=== PATIENT | male | born 1960 | race Caucasian/White ===

== ENCOUNTER 2018-01-31 10:32 | Emergency (ER) | payer OTHER ==
[~2018-01-31] VITALS: Ht 182.9 cm; Wt 112.0 kg
[2018-01-31 10:40] VITALS: BP 213/104; PULSE 82; RESP 16; TEMP 98.8; O2SAT 97
[2018-01-31] MEDS ORDERED: ASPI-183 PO (10:58)
[2018-01-31] MEDS ORDERED: SERT-132 PO (10:58)
[2018-01-31] MEDS ORDERED: LISI-515 PO (10:58)
--- NOTE | 2018-01-31 11:13 | PD ---
HPI Chief Complaint: Musculoskeletal Complaint Time Seen by Provider: 11:13 Travel History International Travel<30 days: No Contact w/Intl Traveler<30days: No Traveled to known affect area: No History of Present Illness HPI Patient is a 57-year-old male presents emergency department for evaluation of right calf cramping and pain as well as swelling. Patient states he first noticed cramping 2 days ago and gradually worsened. 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 He denies any long travel denies any history of blood clots or trauma. Patient became alarmed this morning when he found it to be swollen from his calf down and that his foot was a little bit more pale on the right than on the left. Denies any chest pain denies any shortness of breath. Symptoms moderate , right lower extremity, context and associated signs symptoms as above. PFSH Past Medical History Hypertension: Yes Influenza Vaccination: No Past Surgical History Surgical History: No Previous Surgery Social History Alcohol Use: Yes (OCCAS) Tobacco Use: No Substance Use: No Allergies-Medications (Allergen,Severity, Reaction): Coded Allergies: prednisone (Verified Allergy, Unknown, 01/31/18) sulfamethoxazole (Verified Allergy, Unknown, 01/31/18) trimethoprim (Verified Allergy, Unknown, 01/31/18) Reported Meds & Prescriptions Reported Meds & Active Scripts Active Flexeril (Cyclobenzaprine HCl) 10 Mg Tab 10 Mg PO TID Reported Aspirin 325 Mg Tab 325 Mg PO ONCE Sertraline (Sertraline HCl) 50 Mg Tab 50 Mg PO DAILY Lisinopril 20 Mg Tab 20 Mg PO DAILY Review of Systems Except as stated in HPI: all other systems reviewed are Neg Physical Exam Narrative GENERAL: WD/WN in nad. SKIN: Focused skin assessment warm/dry. HEAD: Atraumatic. Normocephalic. EYES: Pupils equal and round. No scleral icterus. No injection or drainage. ENT: No nasal bleeding or discharge. Mucous membranes pink and moist. NECK: Trachea midline. No JVD. CARDIOVASCULAR: Regular rate and rhythm. No murmur appreciated. RESPIRATORY: No accessory muscle use. Clear to auscultation. Breath sounds equal bilaterally. GASTROINTESTINAL: Abdomen soft, non-tender, nondistended. Hepatic and splenic margins not palpable. MUSCULOSKELETAL: No obvious deformities. No clubbing. No cyanosis. There is some swelling of the right lower extremity, compartments are soft however. There are 2+ bilateral equal pulses and DPs and PTs. Pulses motor and sensory intact distally in all 4 extremities. There is no swelling proximal to the knee. No tenderness on the bones. NEUROLOGICAL: Awake and alert. No obvious cranial nerve deficits. Motor grossly within normal limits. Normal speech. PSYCHIATRIC: Appropriate mood and affect; insight and judgment normal. Data Data Last Documented VS Vital Signs Date Time Temp Pulse Resp B/P (MAP) Pulse Ox O2 Delivery O2 Flow Rate FiO2 01/31/18 13:56 01/31/18 13:19 70 18 96 Room Air 01/31/18 10:40 98.8 Orders Orders Us Leg Venous Doppler (01/31/18 11:17) Complete Blood Count With Diff (01/31/18 11:17) Comprehensive Metabolic Panel (01/31/18 11:17) Prothrombin Time / Inr (Pt) (01/31/18 11:17) Act Partial Throm Time (Ptt) (01/31/18 11:17) Iv Access Insert/Monitor (01/31/18 11:17) Ecg Monitoring (01/31/18 11:17) Oximetry (01/31/18 11:17) Sodium Chloride 0.9% Flush (Ns Flush) (01/31/18 11:30) Ed Discharge Order (01/31/18 13:44) Labs Laboratory Tests Test 01/31/18 11:45 White Blood Count 7.1 TH/MM3 Red Blood Count 5.07 MIL/MM3 Hemoglobin 14.5 GM/DL Hematocrit 44.1 % Mean Corpuscular Volume 87.1 FL Mean Corpuscular Hemoglobin 28.7 PG Mean Corpuscular Hemoglobin Concent 32.9 % Red Cell Distribution Width 12.1 % Platelet Count 228 TH/MM3 Mean Platelet Volume 7.1 FL Neutrophils (%) (Auto) 68.8 % Lymphocytes (%) (Auto) 20.0 % Monocytes (%) (Auto) 8.7 % Eosinophils (%) (Auto) 1.8 % Basophils (%) (Auto) 0.7 % Neutrophils # (Auto) 5.0 TH/MM3 Lymphocytes # (Auto) 1.4 TH/MM3 Monocytes # (Auto) 0.6 TH/MM3 Eosinophils # (Auto) 0.1 TH/MM3 Basophils # (Auto) 0.0 TH/MM3 CBC Comment DIFF FINAL Differential Comment Prothrombin Time 10.4 SEC Prothromb Time International Ratio 1.0 RATIO Activated Partial Thromboplast Time 23.6 SEC Blood Urea Nitrogen 15 MG/DL Creatinine 0.70 MG/DL Random Glucose 139 MG/DL Total Protein 7.6 GM/DL Albumin 3.9 GM/DL Calcium Level 9.0 MG/DL Alkaline Phosphatase 68 U/L Aspartate Amino Transf (AST/SGOT) 67 U/L Alanine Aminotransferase (ALT/SGPT) 96 U/L Total Bilirubin 0.5 MG/DL Sodium Level 137 MEQ/L Potassium Level 3.8 MEQ/L Chloride Level 104 MEQ/L Carbon Dioxide Level 25.5 MEQ/L Anion Gap 8 MEQ/L Estimat Glomerular Filtration Rate 115 ML/MIN [facility] Medical Decision Making Medical Screen Exam Complete: Yes Emergency Medical Condition: Yes Differential Diagnosis DVT, leg strain, leg sprain, compartments syndrome was excluded clinically, fracture excluded clinically Narrative Course Patient room to the emergency department, appears fairly comfortable, DVT ultrasound negative, basic labs are reassuring. Discussed with patient symptomatic management return to ED criteria follow-up with a primary care physician and recommended repeat ultrasound of still having swelling in 1 week Diagnosis Primary Impression: Leg swelling Additional Impression: Muscle cramps Additional Instructions: If your still swollen and we can recommend you have a repeat ultrasound with her primary care physician or the emergency department. Med/Other Pt SpecificInfo: Prescription(s) given Scripts Cyclobenzaprine (Flexeril) 10 Mg Tab 10 MG PO TID for Muscle Spasm, #30 TAB 0 Refills Prov: Manjit Hillman MD 01/31/18 Disposition: 01 DISCHARGE HOME Condition: Stable Manjit Hillman MD Jan 31, 2018 11:13
[2018-01-31] MEDS ORDERED: SODIUM CHLORIDE 0.9% FLUSH 10 ML FLUSH IV FLUSH PRN (11:30)
[2018-01-31 11:51] LABS: BASOPHIL % 0.7 % (0.0-2.0); EOSINOPHIL # 0.1 TH/MM3 (0-0.4); EOSINOPHIL % 1.8 % (0.0-4.0); HEMATOCRIT 44.1 % (39.0-51.0); HEMOGLOBIN 14.5 GM/DL (13.0-17.0); LYMPHOCYTE # 1.4 TH/MM3 (1.0-4.8); MEAN CELL VOLUME 87.1 FL (80.0-100.0); MEAN CORPUSCULAR HEMOGLOBIN 28.7 PG (27.0-34.0); MEAN CORPUSCULAR HGB CONC 32.9 % (32.0-36.0); MEAN PLATELET VOLUME 7.1 FL (7.0-11.0); MONO % 8.7 % (0.0-8.0); MONOCYTE # 0.6 TH/MM3 (0-0.9); NEUT % 68.8 % (16.0-70.0); PLATELET COUNT 228 TH/MM3 (150-450); RED BLOOD COUNT 5.07 MIL/MM3 (4.50-5.90); RED CELL DISTRIBUTION WIDTH 12.1 % (11.6-17.2); WHITE BLOOD COUNT 7.1 TH/MM3 (4.0-11.0)
[2018-01-31 11:54] VITALS: RESP 18; O2SAT 98
[2018-01-31 11:56] VITALS: BP 193/89; PULSE 77; RESP 16; O2SAT 97
[2018-01-31 12:02] LABS: CHLORIDE 104 MEQ/L (98-107); SODIUM (NA) 137 MEQ/L (136-145)
[2018-01-31 12:06] LABS: ALBUMIN 3.9 GM/DL (3.4-5.0); BICARBONATE 25.5 MEQ/L (21.0-32.0); BLOOD UREA NITROGEN 15 MG/DL (7-18); GLUCOSE,RANDOM 139 MG/DL (74-106)
[2018-01-31 12:09] LABS: ALT (GPT) 96 U/L (12-78); AST (GOT) 67 U/L (15-37); GLOMERULAR FILTRATION RATE 115 ML/MIN (>89)
[2018-01-31 12:10] LABS: TOTAL BILIRUBIN ADULT 0.5 MG/DL (0.2-1.0); TOTAL PROTEIN 7.6 GM/DL (6.4-8.2)
[2018-01-31 12:12] LABS: ALKALINE PHOSPHATASE 68 U/L (45-117)
[2018-01-31 12:25] LABS: PROTHROMBIN TIME - PATIENT 10.4 SEC (9.8-11.6)
[2018-01-31 13:19] VITALS: BP 167/103; PULSE 70; RESP 18; O2SAT 96
--- NOTE | 2018-01-31 13:34 | RADRPT ---
EXAM DATE/TIME: 01/31/2018 12:32 [place] COMPARISON: No previous studies available for comparison. INDICATIONS : Right leg redness and pain. MEDICAL HISTORY : Hypertension. SURGICAL HISTORY : None. ENCOUNTER: Initial ACUITY: 1 week PAIN SCORE: 4/10 LOCATION: Right leg. TECHNIQUE: Venous ultrasound of the leg was performed from the inguinal ligament to the proximal calf. Real-guillermo e, color Doppler and spectral tracing, compression and augmentation techniques were used. FINDINGS: There is normal compressibility of the deep venous system from the inguinal region to the proximal ca lf. No echogenic clot is seen in the lumen of the common femoral, femoral, popliteal, and posterior tibial veins. There is a normal response of the venous system to proximal and distal augmentation an d respiration. CONCLUSION: No evidence of DVT. Edward Aguirre MD on January 31, 2018 at 13:31 Board Certified Radiologist. This report was verified electronically.
[2018-01-31] MEDS ORDERED: CYCL10TA PO (13:43)
== END 2018-01-31 13:59 | disposition home or self-care (01) ==
LOC: PHED 10:32
DX: M79.89 Other specified soft tissue disorders (principal); R25.2 Cramp and spasm; I10 Essential (primary) hypertension
CPT/HCPCS: 80053; 85025; 85610; 85730; 93971; 99284